=== PATIENT | male | born 1970 | race African-American/Black ===

== ENCOUNTER 2017-01-29 04:58 | Inpatient (IN) ==
[2017-01-29] MEDS ORDERED: ONDANSETRON 4 MG/2 ML VIAL IV PRN (05:36)
[2017-01-29] MEDS: ALBUTEROL/IPRATROPIUM 3 ML NEB RESP TX SCH ×3 (08:00→20:15)
[2017-01-29 08:48] LABS: Albumin 4.1 G/DL (3.4-5.0); Bilirubin,Total 0.6 MG/DL (0.2-1.0); Calcium 8.9 MG/DL (8.5-10.1); Osmolality,Calculated 284.3 MOS/KG (273-304); Potassium 3.8 MMOL/L (3.5-5.1); Total Protein 7.8 G/DL (6.4-8.3)
[2017-01-29] MEDS: ENOXAPARIN 40 MG/0.4 ML SYRINGE SUBCUT SCH (10:55)
[2017-01-29] MEDS: PANTOPRAZOLE 40 MG TABLET PO SCH (10:55)
[2017-01-29] MEDS: AZTREONAM 2,000 MG in SYRINGE 1 EACH IV SCH ×3 (10:55→20:10)
[2017-01-29] MEDS: LEVOFLOXACIN INJ 750 MG in PREMIX 1 EACH IV SCH (22:08)
[2017-01-29] MEDS ORDERED: SODIUM CHLORIDE 0.9% 250 ML IV ONE (22:48)
[2017-01-30] MEDS ORDERED: TUBERCULIN SKIN TEST 0.1 ML SYRINGE INTRADERM ONE
[2017-01-30] MEDS: ALBUTEROL/IPRATROPIUM 3 ML NEB RESP TX SCH ×4 (01:26→19:18)
[2017-01-30] MEDS: ACETAMINOPHEN 325 MG TABLET PO PRN ×3 (01:34→22:41)
[2017-01-30] MEDS: AZTREONAM 2,000 MG in SYRINGE 1 EACH IV SCH ×4 (02:13→20:29)
[2017-01-30 05:07] LABS: Basophils % 0.3 % (0.0-0.8); Eosinophils % 0.6 % (0.00-10.9); Hematocrit 29.9 VOL% (42.0-52.0); Immature Granulocytes % 0.9 %; Immature Granulocytes Absolute 0.03 #; Lymphocytes # 0.8 10*3/uL (1.4-4.0); Lymphocytes % 24.1 % (21.2-54.2); Mean Corpuscular HGB Conc 33.4 GM/DL (32-36); Mean Corpuscular Hemoglobin 30 PG (27-34); Mean Corpuscular Volume 88.5 FL (87-102); Mean Platelet Volume 9.5 FL (9.6-12.0); Monocytes # 0.5 10*3/uL (0.11-0.8); Monocytes % 14.7 % (1.7-12.7); Neutrophils # 2.1 10*3/uL (1.4-7.4); Neutrophils % 59.4 % (38.7-73.9); Platelet Count 283 T/CUMM (130-400); Red Blood Count 3.38 MC/CUMM (3.8-5.5); Red Cell Distribution Width 14.3 % (9.3-17.3); White Blood Count 3.5 T/CUMM (4-12)
[2017-01-30 05:40] LABS: Albumin 3.4 G/DL (3.4-5.0); Bilirubin,Total 0.6 MG/DL (0.2-1.0); Calcium 8.7 MG/DL (8.5-10.1); Osmolality,Calculated 282.3 MOS/KG (273-304); Potassium 3.5 MMOL/L (3.5-5.1); Total Protein 6.5 G/DL (6.4-8.3)
[2017-01-30] MEDS: PANTOPRAZOLE 40 MG TABLET PO SCH (08:40)
[2017-01-30] MEDS: ENOXAPARIN 40 MG/0.4 ML SYRINGE SUBCUT SCH (08:53)
[2017-01-30 12:35] LABS: HIV Antigen/Antibody Result Reactive (Nonreactive)
[2017-01-30] MEDS: LEVOFLOXACIN INJ 750 MG in PREMIX 1 EACH IV SCH (21:43)
[2017-01-30] MEDS: TEMAZEPAM 7.5 MG CAPSULE PO SCH (22:49)
[2017-01-31] MEDS: ALBUTEROL/IPRATROPIUM 3 ML NEB RESP TX SCH ×4 (00:10→20:54)
[2017-01-31] MEDS: AZTREONAM 2,000 MG in SYRINGE 1 EACH IV SCH ×4 (03:00→21:15)
[2017-01-31] MEDS: ACETAMINOPHEN 325 MG TABLET PO PRN ×2 (10:03→16:01)
[2017-01-31] MEDS: PANTOPRAZOLE 40 MG TABLET PO SCH (10:03)
[2017-01-31] MEDS: ENOXAPARIN 40 MG/0.4 ML SYRINGE SUBCUT SCH (10:03)
[2017-01-31] MEDS: TEMAZEPAM 7.5 MG CAPSULE PO SCH (21:15)
[2017-01-31] MEDS: LEVOFLOXACIN INJ 750 MG in PREMIX 1 EACH IV SCH (22:58)
[2017-02-01] MEDS: ALBUTEROL/IPRATROPIUM 3 ML NEB RESP TX SCH ×3 (01:50→12:50)
[2017-02-01] MEDS: AZTREONAM 2,000 MG in SYRINGE 1 EACH IV SCH ×2 (03:00→08:52)
[2017-02-01] MEDS: PANTOPRAZOLE 40 MG TABLET PO SCH (08:39)
[2017-02-01] MEDS: ENOXAPARIN 40 MG/0.4 ML SYRINGE SUBCUT SCH (08:51)
[2017-02-01 15:03] VITALS: BP 101/55
[2017-02-02 12:01] LABS: TB Ag minue Nil Result 0.01 IU/mL
[2017-02-06 11:21] LABS: % CD4 (T Cells) 14 % (32-64); % CD8 (T Cells) 17 % (13-40); 4/8 Ratio 0.8 (>=0.9)
== END 2017-02-01 14:17 | disposition home or self-care (01) | DRG 153 ==
LOC: N.ED 04:58 → N.EDINP 05:36 → N.CC 06:09
PROVIDERS: ADMIT Internal Medicine; ATTEND Internal Medicine